=== PATIENT | female | born 1990 | race African-American/Black ===

== ENCOUNTER 2020-11-13 19:30 | Inpatient (IN) | payer OTHER ==
[2020-11-14] MEDS ORDERED: Ondansetron PF 4 MG/2 ML Vial IVP PRN ×2 (07:52→22:45)
[2020-11-14] MEDS ORDERED: Promethazine HCl 25 MG/ML VIAL IM PRN ×2 (07:52→22:45)
[2020-11-14] MEDS ORDERED: Misoprostol 200 MCG TAB PR PRN (07:52)
[2020-11-14] MEDS ORDERED: hydrALAZINE 20 MG/ML VIAL SLOW IVP PRN (07:52)
[2020-11-14] MEDS ORDERED: Lidocaine 1% (PF) 30 ML VIAL SC PRN (07:52)
[2020-11-14] MEDS ORDERED: Misoprostol 100 MCG TAB VAG SCH (08:00)
[2020-11-14 08:46] LABS: Hemoglobin 8.3 g/dL (12.0-15.5); Mean Corpuscular Hemoglobin 28.3 pg (27.0-33.0); Mean Corpuscular Volume 88.4 fl (81.6-98.3); Mean Platelet Volume 10.6 fl (7.4-10.4); Platelet Count 152 10x3/uL (150-450); RBC Distribution Width 14.9 % (11.5-14.5); Red Blood Cell (RBC) Count 2.93 10x6/uL (3.90-5.03); White Blood Cell (WBC) Count 12.1 10x3/uL (3.5-10.5)
[2020-11-14 09:06] LABS: ALT (SGPT) 7 U/L (8-55); AST (SGOT) 10 U/L (5-34); Albumin 2.8 g/dL (3.5-5.0); Alkaline Phosphatase 153 U/L (40-110); Anion Gap 10 mmol/L (10-20); BUN (Urea Nitrogen) 9 mg/dL (7.0-18.7); Bilirubin, Total 0.2 mg/dL (0.2-1.2); Calc. Creatinine Clearance 0 mL/min (70-130); Carbon Dioxide 21 mmol/L (22-29); Chloride 112 mmol/L (98-107); Globulin 2.7 g/dL (2.4-3.5); Glucose 91 mg/dL (70-105); Potassium 3.6 mmol/L (3.5-5.1); Protein, Total 5.5 g/dL (6.0-8.3); Sodium 139 mmol/L (136-145)
[2020-11-14 09:23] LABS: HIV (1/2) Antibody/Antigen Non-Reactive (NonReactive); HIV 1/2 INDEX 0.23 S/CO (<1.00); Hep B Surf Ag Non-Reactive S/CO (NonReactive)
[2020-11-14 09:24] LABS: Syphilis Antibody Nonreactive (Nonreactive); Syphilis Antibody Index 0.16 S/CO (<1.00 Non-Reactive)
[2020-11-14 09:43] LABS: HBSAg Index 0.22 S/CO (0-0.99)
[2020-11-14 09:48] VITALS: BMI 23.8
[2020-11-14] MEDS: Acetaminophen 500 MG TAB PO PRN ×2 (10:59→15:16)
[2020-11-14] MEDS ORDERED: Penicillin G Potassium 5 MILL.UNITS VIAL ONE (11:06)
[2020-11-14] MEDS: NS w/ Oxytocin 30 units 500 ML IV PRN (11:10)
[2020-11-14] MEDS ORDERED: Penicillin G Potassium 5 MILL.UNITS in Sodium Chloride 0.9% 100 ML IVPB SCH (11:15)
[2020-11-14] MEDS: Lactated Ringer's 1,000 ML IV SCH (11:49)
[2020-11-14] MEDS: Penicillin G 2.5 MILL.units 2.5 MILL.UNITS in Premix Bag 1 BAG IVPB SCH ×3 (15:16→23:39)
[2020-11-14 17:30] LABS: Amphetamine Detected (NotDetected); Barbiturates Screen Not Detected (NotDetected); Benzodiazepine Screen Not Detected (NotDetected); Cocaine Metabolite Screen Not Detected (NotDetected); Methadone Not Detected (NotDetected); Methamphetamine Not Detected (NotDetected); Opiate Screen Not Detected (NotDetected); Oxycodone Screen Not Detected (NotDetected); Phencyclidine (PCP) Not Detected (NotDetected); THC/Cannabinoid Screen Not Detected (NotDetected); Tricyclic Screen Not Detected (NotDetected)
[2020-11-14] MEDS ORDERED: Morphine 4 MG/ML VIAL SLOW IVP SCH (19:15)
[2020-11-14] MEDS ORDERED: Fentanyl 4 mcg/Bup 0.1% Cadd 100 ML ONE (20:42)
[2020-11-14] MEDS ORDERED: Naloxone HCl 0.4 mg/ml Vial IVP PRN ×2 (22:45)
[2020-11-14] MEDS ORDERED: Fentanyl 4 mcg/Bupivacaine 0.1% Cassette 100 ML EPIDURAL SCH (22:45)
[2020-11-14] MEDS ORDERED: ePHEDrine 50 MG/ML VIAL SLOW IVP PRN (22:45)
[2020-11-14] MEDS ORDERED: Communication Order-Pharmacy FS SCH (22:45)
[2020-11-14] MEDS ORDERED: diphenhydrAMINE 50 MG/ML VIAL IVP PRN (22:45)
[2020-11-14] MEDS ORDERED: Acetaminophen 325 MG TAB PO PRN (22:45)
[2020-11-14] MEDS ORDERED: Lactated Ringer's 500 ML IV PRN (22:45)
[2020-11-15] MEDS ORDERED: Misoprostol 200 MCG TAB ONE (00:15)
[2020-11-15] MEDS ORDERED: Methylergonovine 0.2 MG/ML VIAL ONE (00:31)
[2020-11-15 00:58] LABS: pH (Cord, venous) 7.307 (7.250-7.350)
[2020-11-15] MEDS: NS w/ Oxytocin 30 units 500 ML IV PRN (01:18)
[2020-11-15] MEDS: Lactated Ringer's 1,000 ML IV SCH ×2 (01:18→05:12)
[2020-11-15] MEDS ORDERED: Milk Of Magnesia 30 ML UDCUP PO PRN (03:00)
[2020-11-15] MEDS ORDERED: Bisacodyl 10 MG SUPP PR PRN (03:00)
[2020-11-15] MEDS ORDERED: Lanolin Ointment 7 GM TUBE TOP PRN (03:00)
[2020-11-15] MEDS ORDERED: NS / Oxytocin 40 units/1000ml 1,000 ML IV SCH (03:00)
[2020-11-15] MEDS ORDERED: hydrALAZINE 20 MG/ML VIAL SLOW IVP PRN (03:00)
[2020-11-15] MEDS ORDERED: Preparation H Ointment 28 GM TUBE PR PRN (03:00)
[2020-11-15 03:32] LABS: #Eosinphils 0.2 10x3/uL (0.0-0.5); #Monocytes 0.7 10x3/uL (0.0-1.1); %Basophils 0.1 % (0.0-2.0); %Eosinophils 1.6 % (0.0-6.0); %Lymphocytes 14.3 % (18.0-47.0); %Monocytes 5.6 % (0.0-10.0); %Neutrophils 77.5 % (40.0-75.0); Hemoglobin 8.2 g/dL (12.0-15.5); Mean Corpuscular HGB CONC 30.9 g/dL (32.0-36.0); Mean Corpuscular Hemoglobin 27.4 pg (27.0-33.0); Mean Corpuscular Volume 88.5 fl (81.6-98.3); Mean Platelet Volume 10.6 fl (7.4-10.4); Platelet Count 138 10x3/uL (150-450); RBC Distribution Width 14.8 % (11.5-14.5); Red Blood Cell (RBC) Count 2.96 10x6/uL (3.90-5.03); White Blood Cell (WBC) Count 12.9 10x3/uL (3.5-10.5)
[2020-11-15] MEDS: Penicillin G 2.5 MILL.units 2.5 MILL.UNITS in Premix Bag 1 BAG IVPB SCH (05:12)
[2020-11-15] MEDS ORDERED: Adacel (T-DAP) 0.5 ML SYRINGE IM ONE (09:00)
[2020-11-15] MEDS: Docusate Calcium (SURFAK) 240 MG CAP PO SCH ×2 (09:09→21:47)
[2020-11-15] MEDS: Prenatal Vitamin 1 TAB PO SCH (09:09)
[2020-11-15] MEDS: Ferrous Sulfate 325 MG TAB PO SCH ×2 (09:09→16:37)
[2020-11-15] MEDS: Acetaminophen 325 MG TAB PO PRN ×3 (09:15→22:58)
[2020-11-15] MEDS ORDERED: HYDROcodone/Acetaminophen 5/325 mg Tablet PO SCH (11:00)
[2020-11-15 14:12] LABS: Hemoglobin 7.9 g/dL (12.0-15.5); Mean Corpuscular Hemoglobin 28.1 pg (27.0-33.0); Mean Corpuscular Volume 87.9 fl (81.6-98.3); Mean Platelet Volume 11.2 fl (7.4-10.4); Platelet Count 123 10x3/uL (150-450); RBC Distribution Width 14.6 % (11.5-14.5); Red Blood Cell (RBC) Count 2.81 10x6/uL (3.90-5.03); White Blood Cell (WBC) Count 12.9 10x3/uL (3.5-10.5)
[2020-11-15] MEDS ORDERED: Acetaminophen 500 MG TAB PO SCH (17:15)
[2020-11-15] MEDS ORDERED: Iron Sucrose Complex 500 MG in Sodium Chloride 0.9% 250 ML 250 ML IVPB SCH (17:15)
[2020-11-16 07:55] VITALS: BP 118/61; TEMP 98.3
[2020-11-16] MEDS: Prenatal Vitamin 1 TAB PO SCH (08:43)
[2020-11-16] MEDS: Docusate Calcium (SURFAK) 240 MG CAP PO SCH (08:43)
[2020-11-16] MEDS: Ferrous Sulfate 325 MG TAB PO SCH (08:43)
[2020-11-16] MEDS ORDERED: Bupivacaine 0.25% HCL 30 ML VIAL ONE (11:00)
[2020-11-17 20:36] LABS: Chlamydia by PCR Not Detected (NotDetected); GC by PCR Not Detected (NotDetected)
== END 2020-11-16 16:02 | disposition home or self-care (01) | DRG 806 ==
LOC: CSHLD 11-14 06:39 → CSHPP 11-15 04:05
PROVIDERS: ADMIT Student in an Organized Health Care Education/Training Program; ATTEND Family Medicine
PROC: 4A0HXCZ Measurement of Products of Conception, Cardiac Rate, External Approach (ICD-10-PCS; principal; 2020-11-15)
PROC: 10D07Z6 Extraction of Products of Conception, Vacuum, Via Natural or Artificial Opening (ICD-10-PCS; 2020-11-15)
DX: O41.03X0 Oligohydramnios, third trimester, not applicable or unspecified (principal); O99.324 Drug use complicating childbirth; Z37.0 Single live birth; O36.5930 Maternal care for other known or suspected poor fetal growth, third trimester, not applicable or unspecified; F17.210 Nicotine dependence, cigarettes, uncomplicated; Z3A.39 39 weeks gestation of pregnancy; O99.02 Anemia complicating childbirth; D50.9 Iron deficiency anemia, unspecified; O76 Abnormality in fetal heart rate and rhythm complicating labor and delivery; F15.90 Other stimulant use, unspecified, uncomplicated; O69.81X0 Labor and delivery complicated by cord around neck, without compression, not applicable or unspecified; Z86.16 Personal history of COVID-19; O99.334 Smoking (tobacco) complicating childbirth; O99.52 Diseases of the respiratory system complicating childbirth; J45.909 Unspecified asthma, uncomplicated
CPT/HCPCS: 36415; 36416; 51702; 76816; 80053; 80306; 82805; 85027; 86780; 86850; 86900; 86901; 87081; 87340; 87389; 87480; 87491; 87510; 87591; 87660; 88307; J1756; J2210; J2270; J2540; J2590; J7050; S0020

== ENCOUNTER 2022-05-04 16:47 | Inpatient (IN) | payer OTHER, SELFPAY ==
[2022-05-04] MEDS ORDERED: hydrALAZINE 20 MG/ML VIAL SLOW IVP PRN (17:36)
[2022-05-04 19:00] LABS: Fetal Membranes Rupture No Membranes Rupture (No Rupture)
[2022-05-04] MEDS ORDERED: Misoprostol 200 MCG TAB PR PRN (19:19)
[2022-05-04] MEDS ORDERED: Methylergonovine 0.2 MG/ML VIAL IM PRN (19:19)
[2022-05-04] MEDS ORDERED: Ondansetron PF 4 MG/2 ML Vial IVP PRN ×2 (19:19→21:33)
[2022-05-04] MEDS ORDERED: Acetaminophen 500 MG TAB PO PRN (19:19)
[2022-05-04] MEDS ORDERED: Promethazine HCl 25 MG/ML VIAL IM PRN ×2 (19:19→21:33)
[2022-05-04] MEDS ORDERED: Butorphanol Tartrate 1 MG/ML VIAL SLOW IVP PRN (19:19)
[2022-05-04] MEDS ORDERED: Lidocaine 1% (PF) 30 ML VIAL SC PRN (19:19)
[2022-05-04] MEDS ORDERED: Fentanyl 100 MCG/2 ML VIAL SLOW IVP PRN (19:19)
[2022-05-04] MEDS ORDERED: Docusate 100 MG CAP PO PRN (19:19)
[2022-05-04] MEDS ORDERED: Lactated Ringer's 1,000 ML IV SCH (19:30)
[2022-05-04] MEDS ORDERED: NS w/ Oxytocin 30 units 500 ML IV SCH ×2 (19:30)
[2022-05-04] MEDS ORDERED: Misoprostol 100 MCG TAB VAG SCH ×2 (19:30)
[2022-05-04 19:48] VITALS: BMI 23.8
[2022-05-04 19:53] LABS: Mean Corpuscular HGB CONC 32.1 g/dL (32.0-36.0); Mean Corpuscular Hemoglobin 28.4 pg (27.0-33.0); Mean Corpuscular Volume 88.3 fl (81.6-98.3); Mean Platelet Volume 11.1 fl (7.4-10.4); Platelet Count 196 10x3/uL (150-450); RBC Distribution Width 14.2 % (11.5-14.5); Red Blood Cell (RBC) Count 3.17 10x6/uL (3.90-5.03); White Blood Cell (WBC) Count 10.1 10x3/uL (3.5-10.5)
[2022-05-04 20:08] LABS: Bilirubin Neg (Negative); Blood, Urine 250 (Negative); Clarity Clear (Clear); Glucose, Urine (Dipstick) Normal (Negative); Ketone, Urine 5 mg/dL (Negative); Leukocyte 500 (Negative); Nitrite Negative (Negative); Protein, Urine (Dipstick) 30 mg/dl (Neg-Trace)
[2022-05-04 20:16] LABS: Amphetamine Detected (NotDetected); Barbiturates Screen Not Detected (NotDetected); Benzodiazepine Screen Not Detected (NotDetected); Cocaine Metabolite Screen Not Detected (NotDetected); Methadone Not Detected (NotDetected); Methamphetamine Detected (NotDetected); Opiate Screen Not Detected (NotDetected); Oxycodone Screen Not Detected (NotDetected); Phencyclidine (PCP) Not Detected (NotDetected); THC/Cannabinoid Screen Not Detected (NotDetected); Tricyclic Screen Not Detected (NotDetected)
[2022-05-04 20:25] LABS: Syphilis Antibody Nonreactive (Nonreactive); Syphilis Antibody Index 0.16 S/CO (<1.00 Non-Reactive)
[2022-05-04 20:26] LABS: HBSAg Index 0.19 S/CO (0-0.99); HIV (1/2) Antibody/Antigen Non-Reactive (NonReactive); HIV 1/2 INDEX 0.09 S/CO (<1.00); Hep B Surf Ag Non-Reactive S/CO (NonReactive)
[2022-05-04 20:27] LABS: ALT (SGPT) 7 U/L (8-55); AST (SGOT) 12 U/L (5-34); Albumin 2.9 g/dL (3.5-5.0); Alkaline Phosphatase 149 U/L (40-110); Anion Gap 13 mmol/L (10-20); BUN (Urea Nitrogen) 10 mg/dL (7.0-18.7); Bilirubin, Total 0.4 mg/dL (0.2-1.2); Calc. Creatinine Clearance 124 mL/min (70-130); Calcium 8.5 mg/dL (7.8-10.44); Carbon Dioxide 18 mmol/L (22-29); Chloride 108 mmol/L (98-107); Estimated GFR 123; Globulin 2.8 g/dL (2.4-3.5); Glucose 92 mg/dL (70-105); Potassium 3.8 mmol/L (3.5-5.1); Protein, Total 5.7 g/dL (6.0-8.3); Sodium 135 mmol/L (136-145)
[2022-05-04 20:29] LABS: Bacteria/HPF 3+ HPF (None Seen); Mucous/LPF 1+ LPF (<2+); Squamous Epithelial 0-3 HPF (0-3)
[2022-05-04] MEDS ORDERED: Fentanyl 2 mcg/Bup 0.1% Cadd 100 ML ONE (21:04)
[2022-05-04] MEDS ORDERED: ePHEDrine Sulfate 50 MG/10 ML VIAL SLOW IVP PRN (21:33)
[2022-05-04] MEDS ORDERED: Moisturizing Cream (Eucerin) 113 GM JAR TOP PRN (21:33)
[2022-05-04] MEDS ORDERED: Naloxone HCl 0.4 mg/ml Vial IVP PRN ×2 (21:33)
[2022-05-04] MEDS ORDERED: diphenhydrAMINE 50 MG/ML VIAL IVP PRN (21:33)
[2022-05-04] MEDS ORDERED: Lactated Ringer's 500 ML IV PRN (21:33)
[2022-05-04] MEDS ORDERED: Fentanyl 2 mcg/Bupivacaine 0.1% Cassette 100 ML EPIDURAL SCH (21:45)
[2022-05-04] MEDS ORDERED: Communication Order-Pharmacy FS SCH (21:45)
[2022-05-04] MEDS: cefTRIAXone\\ROCEPHIN 1 GM in Sodium Chloride 0.9% 100 ML IVPB SCH (21:55)
[2022-05-04 21:59] LABS: SARS-CoV-2 NAA Rapid Test Not Detected (NotDetected)
[2022-05-05] MEDS ORDERED: Lanolin Ointment 7 GM TUBE TOP PRN (04:43)
[2022-05-05] MEDS ORDERED: Preparation H Ointment 28 GM TUBE PR PRN (04:43)
[2022-05-05] MEDS ORDERED: hydrALAZINE 20 MG/ML VIAL SLOW IVP PRN (04:43)
[2022-05-05] MEDS ORDERED: Milk Of Magnesia 30 ML UDCUP PO PRN (04:43)
[2022-05-05] MEDS ORDERED: Benzocaine-Menthol 82.5 ML CAN TOP PRN (04:43)
[2022-05-05] MEDS ORDERED: diphenhydrAMINE 25 MG CAP PO PRN (04:43)
[2022-05-05] MEDS ORDERED: Boostrix 0.5 ML (Tdap) VIAL (>/=7 yrs of age) IM ONE (04:43)
[2022-05-05] MEDS ORDERED: Bisacodyl 10 MG SUPP PR PRN (04:43)
[2022-05-05 08:46] LABS: Hemoglobin 8.6 g/dL (12.0-15.5); Mean Corpuscular HGB CONC 31.6 g/dL (32.0-36.0); Mean Corpuscular Hemoglobin 28.1 pg (27.0-33.0); Mean Corpuscular Volume 88.9 fl (81.6-98.3); Mean Platelet Volume 11.4 fl (7.4-10.4); Platelet Count 170 10x3/uL (150-450); RBC Distribution Width 14.2 % (11.5-14.5); Red Blood Cell (RBC) Count 3.06 10x6/uL (3.90-5.03); White Blood Cell (WBC) Count 14.1 10x3/uL (3.5-10.5)
[2022-05-05] MEDS: Docusate 100 MG CAP PO SCH ×2 (09:11→21:26)
[2022-05-05] MEDS: Ferrous Sulfate 325 MG TAB PO SCH ×2 (09:11→18:00)
[2022-05-05] MEDS: Prenatal Vitamin 1 TAB PO SCH (09:11)
[2022-05-05] MEDS: metroNIDAZOLE 500 MG TAB PO SCH ×2 (09:11→21:26)
[2022-05-05 12:03] LABS: Chlamydia by PCR Not Detected (NotDetected); GC by PCR Not Detected (NotDetected)
[2022-05-05] MEDS: Acetaminophen 325 MG TAB PO PRN ×2 (12:19→21:25)
[2022-05-05] MEDS ORDERED: Sodium Chloride 0.9% 100 ML ONE (21:03)
[2022-05-05] MEDS ORDERED: cefTRIAXone\\ROCEPHIN 1 GM VIAL ONE (21:03)
[2022-05-05] MEDS: cefTRIAXone\\ROCEPHIN 1 GM in Sodium Chloride 0.9% 100 ML IVPB SCH (21:26)
[2022-05-06] MEDS: Acetaminophen 325 MG TAB PO PRN (08:59)
[2022-05-06] MEDS: metroNIDAZOLE 500 MG TAB PO SCH (08:59)
[2022-05-06] MEDS: Docusate 100 MG CAP PO SCH (09:00)
[2022-05-06] MEDS ORDERED: Cefdinir 300 MG CAP PO SCH (09:00)
[2022-05-06] MEDS: Ferrous Sulfate 325 MG TAB PO SCH (09:00)
[2022-05-06] MEDS: Prenatal Vitamin 1 TAB PO SCH (09:00)
[2022-05-06 10:30] VITALS: BP 112/61; TEMP 98.4
== END 2022-05-06 11:20 | disposition home or self-care (01) | DRG 806 ==
LOC: CSHLD/OP 16:47 → CSHLD 19:47 → CSHPP 05-05 04:42
PROVIDERS: ADMIT Obstetrics & Gynecology; ATTEND Obstetrics & Gynecology
PROC: 10907ZC Drainage of Amniotic Fluid, Therapeutic from Products of Conception, Via Natural or Artificial Opening (ICD-10-PCS; 2022-05-04)
PROC: 10H07YZ Insertion of Other Device into Products of Conception, Via Natural or Artificial Opening (ICD-10-PCS; 2022-05-04)
PROC: 10E0XZZ Delivery of Products of Conception, External Approach (ICD-10-PCS; principal; 2022-05-05)
PROC: 0UC97ZZ Extirpation of Matter from Uterus, Via Natural or Artificial Opening (ICD-10-PCS; 2022-05-05)
DX: O99.52 Diseases of the respiratory system complicating childbirth (principal); N39.0 Urinary tract infection, site not specified; Z37.0 Single live birth; Z3A.40 40 weeks gestation of pregnancy; Z20.822 Contact with and (suspected) exposure to COVID-19; F17.210 Nicotine dependence, cigarettes, uncomplicated; O99.334 Smoking (tobacco) complicating childbirth; O23.43 Unspecified infection of urinary tract in pregnancy, third trimester; O23.593 Infection of other part of genital tract in pregnancy, third trimester; D64.9 Anemia, unspecified; O99.02 Anemia complicating childbirth; O99.324 Drug use complicating childbirth; O77.0 Labor and delivery complicated by meconium in amniotic fluid; Z90.89 Acquired absence of other organs; Z88.6 Allergy status to analgesic agent; Z71.6 Tobacco abuse counseling; Z71.51 Drug abuse counseling and surveillance of drug abuser; F15.10 Other stimulant abuse, uncomplicated
CPT/HCPCS: 51702; 76815; 76819; 80053; 80306; 81001; 84112; 85027; 86762; 86780; 86850; 86900; 86901; 87081; 87086; 87340; 87389; 87480; 87491; 87510; 87591; 87660; 87661; 99285; J0696; J2405; J2590; J3490; U0002